=== PATIENT | male | born 1945 | race Caucasian/White ===

== ENCOUNTER → 2017-04-13 | Outpatient (CLI) | payer MEDICARE ==
[2017-04-13 16:25] LABS: Blood Urea Nitrogen 14 mg/dL (9-20); Non-African American GFR(MDRD) >60 (>60 ml/min/1.73 sqM)
--- NOTE | 2017-04-13 18:04 | CT ---
EXAMINATION TYPE: CT angio neck DATE OF EXAM: 04/13/2017 COMPARISON: NONE HISTORY: Carotid artery stenosis. Patient complains of syncopal episodes x [address] DLP: 448.00 mGycm Automated exposure control for dose reduction was used. CONTRAST: Performed with IV Contrast, patient injected with 65 mL of Omnipaque 350. FINDINGS: There are 3-D post processed images. Thoracic aorta is atheromatous. There is normal branching pattern of the great vessels on the aortic arch. The right vertebral artery is larger than the left. There is significant narrowing of the lumen of the left mid vertebral artery. Basilar artery fills mostly from the right side. There is bilateral patency of the common internal and external carotid arteries. There is atheroscler otic plaque at the origin of the internal carotid arteries bilaterally. There is significant plaque a t the right carotid artery bifurcation and probably 90% stenosis of the origin of the right internal carotid artery. There is approximately 60% stenosis at the origin of the left internal carotid artery . There is a segment of 40% stenosis of the left common carotid artery. There is no sign of dissectio n. IMPRESSION: THERE IS A LONG SEGMENT OF 40% STENOSIS OF THE LEFT MID COMMON CAROTID ARTERY. THERE IS APPROXIMATE 5 0-60% STENOSIS OF THE PROXIMAL LEFT INTERNAL CAROTID ARTERY. THERE IS EVIDENCE OF MORE THAN 90% STENOSIS OF THE ORIGIN RIGHT INTERNAL CAROTID ARTERY. THERE IS SUB TOTAL OCCLUSION. THERE IS A SMALL LEFT VERTEBRAL ARTERY AND IT IS NOT CLEAR IF THERE IS STENOSIS.
== END | disposition home or self-care (01) ==
LOC: RADCTMAIN 15:47
PROVIDERS: ATTEND Thoracic Surgery (Cardiothoracic Vascular Surgery)
DX: I65.23 Occlusion and stenosis of bilateral carotid arteries (principal)
CPT/HCPCS: 82565; 84520; 70498; 36415; Q9967

== ENCOUNTER → 2017-05-30 | Outpatient (CLI) | payer MEDICARE ==
[2017-05-30 10:47] LABS: CH 32.3; CHCM 35.9; HCT 45.4 % (39.0-53.0); HDW 2.95; HGB 15.9 gm/dL (13.0-17.5); MCH 31.5 pg (25.0-35.0); MCV 90.2 fL (80.0-100.0); Mean Platelet Volume 8.6; RBC 5.04 m/uL (4.30-5.90); RDW 14.1 % (11.5-15.5); WBC 5.9 k/uL (3.8-10.6)
== END | disposition home or self-care (01) ==
LOC: LABWHC1 10:13
PROVIDERS: ATTEND Thoracic Surgery (Cardiothoracic Vascular Surgery)
DX: I25.10 Atherosclerotic heart disease of native coronary artery without angina pectoris (principal); Z01.818 Encounter for other preprocedural examination
CPT/HCPCS: 85027; 93005

== ENCOUNTER 2017-06-02 08:24 | Inpatient (IN) | payer MEDICARE ==
[2017-05-29 16:16] VITALS: BMI 25.4
[~2017-06-02 08:24] MED LIST: FAMOTIDINE 20 MG/2 ML VIAL IV PRN; LIDOCAINE 1% 20 ML VIAL (10MG/ML) FOR IV START INTRADERMA PRN; ONDANSETRON 4 MG/2 ML VIAL IVP PRN; ceFAZolin 2 GM in SODIUM CHLORIDE 0.9% 100 ML IVPB ONE
[2017-06-02] MEDS ORDERED: PHENYLEPHRINE 40 MG in SODIUM CHLORIDE 0.9% 250 ML IV SCH (08:45)
[2017-06-02] MEDS: LACTATED RINGERS 1,000 ML IV SCH ×2 (09:47→10:58)
[2017-06-02] MEDS ORDERED: LABETALOL 5 MG/ML VIAL MDV ONE (11:01)
[2017-06-02] MEDS ORDERED: hydrALAZINE HCL 20 MG/ML 1 ML VIAL ONE (11:01)
[2017-06-02] MEDS ORDERED: SUCCINYLCHOLINE CHLORIDE 100 MG/5 ML SYR IV ONE (11:01)
[2017-06-02] MEDS ORDERED: GLYCOPYRROLATE 0.2 MG/ML 2 ML VIAL ONE (11:01)
[2017-06-02] MEDS ORDERED: HEPARIN SODIUM,PORCINE 5,000 UNIT/ML 1 ML VIAL ONE (11:01)
[2017-06-02] MEDS ORDERED: ROCURONIUM BROMIDE 10 MG/ML 10 ML VIAL IV ONE (11:01)
[2017-06-02] MEDS ORDERED: NEOSTIGMINE 1 MG/ML 10 ML VIAL ONE (11:01)
[2017-06-02] MEDS ORDERED: fentaNYL (PF) 50 MCG/ML 2 ML AMP ONE (11:01)
[2017-06-02] MEDS ORDERED: LIDOCAINE 1% INJ 10MG/ML (20 ML MDV) ONE (11:01)
[2017-06-02] MEDS ORDERED: MIDAZOLAM 2 MG/2 ML VIAL ONE (11:01)
[2017-06-02] MEDS ORDERED: PROPOFOL 10 MG/ML 20 ML VIAL IV ONE (11:01)
--- NOTE | 2017-06-02 11:02 | P.OP ---
Date of Procedure: 06/02/17 Preoperative Diagnosis: Internal carotid artery stenosis Postoperative Diagnosis: Right internal carotid artery stenosis Procedure(s) Performed: Implants: Anesthesia: ROBERTA Surgeon: Adán Maynard Estimated Blood Loss (ml): 50 Pathology: other (Atherosclerotic plaque) Condition: stable Disposition: ICU Indications for Procedure: Operative Findings: Description of Procedure: Patient was brought to the operating room under general anesthesia and prepared for right carotid endarterectomy cerebral monitoring was utilized by [employer] utilizing S SPEP and EEG monitoring throughout the procedure patient's right neck was prepped and draped in usual sterile Betadine fashion incision on the anterior border the sternocleidomastoid was carried down through skin and subcutaneous tissue electrocautery was utilized for hemostasis control of the carotid artery proximally and distally the internal/external and internal carotid arteries were all controlled heparin was administered 10,000 units IV we after 5 minutes of circulating heparin time controlled carotid artery and opened it and removed and extensive atherosclerotic plaque and the complete carotid endarterectomy was performed into the both internal and external carotid branches the intima was tacked down with 7-0 Prolene suture meticulous attention with loupe magnification removed all intimal debris flushed with heparin saline solution and patch the vessel closed with a Hemashield background patch utilizing 6-0 Prolene suture patient tolerated procedures well the neural monitoring throughout the procedure was satisfactory and we were able to close the vessel closed the neck without a drain utilizing a Vicryl sutures and all layers thank you for typing
[2017-06-02] MEDS ORDERED: SODIUM CHLORIDE 0.9% 500 ML with HEPARIN SODIUM,PORCINE 5,000 UNIT IV ONE ×2 (11:46)
[2017-06-02] MEDS ORDERED: TEMAZEPAM 15 MG CAP PO PRN (12:12)
[2017-06-02] MEDS ORDERED: LACTATED RINGERS 1,000 ML IV ONE ×3 (12:24→15:21)
[2017-06-02] MEDS ORDERED: THROMBIN (BOVINE) 5,000 UNIT VIAL TOPICAL ONE (12:49)
[2017-06-02] MEDS ORDERED: GELATIN SPONGE,ABSORB (LARGE) 1 EACH SPONGE TOPICAL ONE (12:50)
[2017-06-02] MEDS: NITROGLYCERIN-D5W PMX 50 MG in DEXTROSE/WATER 1 250ML.BAG IV SCH ×2 (13:40→15:19)
[2017-06-02] MEDS ORDERED: BENZOCAINE/MENTHOL LOZENG 1 EACH LOZENGE MUCOUS MEM PRN (14:49)
[2017-06-02] MEDS ORDERED: MORPHINE SULFATE 2 MG/ML SYRINGE IVP PRN (14:49)
[2017-06-02] MEDS ORDERED: MAG HYDROX/AL HYDROX/SIMETH 30 ML CUP PO PRN (14:49)
[2017-06-02] MEDS ORDERED: TRIMETHOBENZAMIDE 100 MG/ML 2 ML VIAL IM PRN (14:49)
[2017-06-02] MEDS ORDERED: HYDROcodone/APAP 5-325MG 1 EACH TAB PO PRN (14:49)
[2017-06-02] MEDS: HYDROmorphone 1 MG/ML 1 ML SYRINGE IVP PRN ×2 (15:00→15:10)
[2017-06-02] MEDS: ACETAMINOPHEN TAB 325 MG TAB PO PRN (16:44)
[2017-06-02] MEDS: ceFAZolin 2 GM in SODIUM CHLORIDE 0.9% 100 ML IVPB SCH ×2 (16:44→23:56)
[2017-06-02] MEDS: DEXTROSE 5%-0.45% NACL 1,000 ML IV SCH (16:45)
--- NOTE | 2017-06-02 18:26 | P.CNPUL ---
History of Present Illness Consult date: 06/02/17 Chief complaint: Carotid endarterectomy History of present illness: This is a 72-year-old gentleman with a known history of carotid artery disease, peripheral vascular disease, hypertension, hyperlipidemia, who was also found to have a significant right carotid artery stenosis. A CT angios of the neck showed 90% right internal carotid artery stenosis. The patient underwent a right carotid endarterectomy and currently is postop and is being monitored in the intensive care unit. He was brought in in a hemodynamically stable condition. There is been a discrepancy between the arterial line breathing and the cuff pressure reading. I think the arterial line waveform is suboptimal and probably to miss a representation of his underlying blood pressure control. He is currently on a 20 mics of nitroglycerin drip and his most recent also, the patient came in quite bradycardic and he was in sinus bradycardia, and low 40s and gradually his heart rate picked up and is currently he is in the mid 50s. No chest pain. No shortness of breath. No changes in his vision. No headaches. Surgical wound site over the right neck area is clean and intact. No bleeding. No nausea. No vomiting. No abdominal pain. Producing adequate amount of urine output. Currently on oxygen 2 L/m nasal cannula and his pulse is around 98%. Review of Systems Constitutional: Denies chills, Denies fever Eyes: denies blurred vision, denies bulging eye, denies decreased vision Ears: deny: decreased hearing, ear discharge Ears, nose, mouth and throat: Reports ant. neck pain (At the surgical site) Cardiovascular: Denies chest pain, Denies shortness of breath Respiratory: Denies cough Gastrointestinal: Denies abdominal pain, Denies diarrhea, Denies nausea, Denies vomiting Musculoskeletal: Denies myalgias Musculoskeletal: absent: ankle pain, ankle stiffness, ankle swelling Integumentary: Denies pruritus, Denies rash Neurological: Denies numbness, Denies weakness Past Medical History Past Medical History: Hearing Disorder / Deafness, Hyperlipidemia, Hypertension , Skin Disorder, Vascular Disorder Additional Past Medical History / Comment(s): Carotid artery disease bilaterally worse on the right with a HIDA percent stenosis at the origin of the right internal carotid artery, hypertension, hyperlipidemia, peripheral vascular disease, impaired hearing, History of Any Multi-Drug Resistant Organisms: None Reported Additional Past Surgical History / Comment(s): PTBA W/ 2 STENTS ON ONE SIDE, 1 STENT ON OTHER SIDE. Past Anesthesia/Blood Transfusion Reactions: No Reported Reaction Smoking Status: Former smoker - Past Family History Father Family Medical History: Cancer Medications and Allergies Home Medications Medication Instructions Recorded Confirmed Type Ascorbic Acid [Vitamin C] 1,000 mg PO DAILY 05/29/17 06/02/17 History Aspirin 325 mg PO DAILY 05/29/17 06/02/17 History Atorvastatin [Lipitor] 20 mg PO DAILY 05/29/17 06/02/17 History Atorvastatin [Lipitor] 40 mg PO DAILY 05/29/17 06/02/17 History Fish Oil/Dha/Epa [Fish Oil 1,200 1 cap PO DAILY 05/29/17 06/02/17 History mg Fish Oil] Lisinopril [Prinivil] 10 mg PO DAILY 05/29/17 06/02/17 History Multivitamins, Thera [Multivitamin 1 tab PO DAILY 05/29/17 06/02/17 History (formulary)] Temazepam [Restoril] 15 mg PO HS PRN 05/29/17 06/02/17 History Allergies Allergy/AdvReac Type Severity Reaction Status Date / Time No Known Allergies Allergy Verified 06/02/17 13:57 Physical Exam Vitals: Vital Signs Temp Pulse Resp BP BP BP BP 06/02/17 15:30 55 L 16 150/49 123/60 06/02/17 15:05 49 L 16 149/52 122/56 06/02/17 14:50 56 L 16 142/60 127/65 06/02/17 14:35 48 L 16 143/67 120/60 06/02/17 14:20 49 L 16 149/66 124/87 06/02/17 14:05 46 L 16 163/44 129/56 06/02/17 13:50 44 L 16 170/67 155/78 06/02/17 13:35 45 L 18 160/69 151/50 06/02/17 09:30 97.5 F L 51 L 18 151/63 133/63 Pulse Ox 06/02/17 15:30 98 06/02/17 15:05 98 06/02/17 14:50 100 06/02/17 14:35 99 06/02/17 14:20 99 06/02/17 14:05 99 06/02/17 13:50 98 06/02/17 13:35 100 06/02/17 09:30 99 Intake and Output 06/02/17 06/02/17 06/02/17 06:59 14:59 22:59 Intake Total 1601 414 Output Total 300 100 Balance 1301 314 Intake: IV 1601 414 Output: Urine 280 100 Estimated Blood Loss 20 Head exam was generally normal. There was no scleral icterus or corneal arcus. Mucous membranes were moist. Neck is supple and the surgical wound site over the right neck area is clean and intact. No swelling. No stridor.Lungs were clear to auscultation and percussion, and with normal diaphragmatic excursion. No wheezes or rales were noted. Cardiac exam revealed the PMI to be normally situated and sized. The rhythm was regular and no extrasystoles were noted during several minutes of auscultation. The first and second heart sounds were normal and physiologic splitting of the second heart sound was noted. There were no murmurs, rubs, clicks, or gallops.Abdominal exam revealed normal bowel sounds. The abdomen was soft, non-tender, and without masses, organomegaly, or appreciable enlargement of the abdominal aorta. Extremities are showing diminished pulses and there is no cyanosis or clubbing at this point. Assessment and Plan Plan: Assessment 1 right carotid endarterectomy, for severe 90% right carotid stenosis at origin of the internal carotid artery. 2 peripheral vascular disease 3 postoperative bradycardia, sinus, improving 4 postoperative hypertension, currently on a nitroglycerin drip for blood pressure control with a target mean arterial pressure of 75 5 hyperlipidemia 6 hypertension 7 impaired hearing Plan Monitor this patient's neuro status in ICU for another 24 hours. Surgical wound site is clean. The patient is alert. No neurologic deficits. The patient is a mild sinus bradycardia which seems to be improving. Continue nitroglycerin drip. Wean nitro drip to keep him map above 70. No other issues postop for now. 2 be monitored in ICU for the next 12-24 hours and possible discharge in a.m. if he continues to be stable. Resume Lipitor. Resume Zestril in a.m. IV Protonix. Heparin subcu for DVT prophylaxis.
[2017-06-02] MEDS: HEPARIN SODIUM,PORCINE 5,000 UNIT/ML 1 ML VIAL SQ SCH ×2 (20:07→23:56)
[2017-06-02] MEDS: HYDROcodone/APAP 5-325MG 1 EACH TAB PO PRN (20:15)
[2017-06-03] MEDS: HYDROcodone/APAP 5-325MG 1 EACH TAB PO PRN (01:15)
[2017-06-03 04:38] LABS: Basophils % (A) 0 %; CH 32.2; CHCM 36.4; Eosinophils # (A) 0.1 k/uL (0-0.7); Eosinophils % (A) 1 %; HCT 37.1 % (39.0-53.0); HDW 2.91; Luc # (Auto) 0.11; Luc % (Auto) 1; Lymphocytes # (A) 1.1 k/uL (1.0-4.8); Lymphocytes % (A) 13 %; MCH 31.1 pg (25.0-35.0); MCV 88.7 fL (80.0-100.0); Mean Platelet Volume 9.9; Monocytes # (A) 0.6 k/uL (0-1.0); Monocytes % (A) 7 %; Neutrophils # (A) 6.5 k/uL (1.3-7.7); Neutrophils % (A) 78 %; RBC 4.18 m/uL (4.30-5.90); RDW 13.8 % (11.5-15.5); WBC 8.4 k/uL (3.8-10.6); WBC (Perox) 8.36
[2017-06-03] MEDS: ACETAMINOPHEN TAB 325 MG TAB PO PRN (05:37)
[2017-06-03] MEDS ORDERED: PANTOPRAZOLE 40 MG TABLET PO SCH (07:30)
--- NOTE | 2017-06-03 08:01 | P.PN ---
Subjective Principal diagnosis: Right internal carotid artery stenosis. POD #1 right carotid endarterectomy. Patient currently sitting up in bed in no acute distress. Denies pain. Does state that he does not tolerate anticoagulants well, however he is only on aspirin which is his home medication. Objective - Vital Signs Vital signs: Vital Signs Temp 99.2 F 06/03/17 00:00 Pulse 52 L 06/03/17 06:00 Resp 12 06/03/17 06:00 BP 140/60 06/03/17 06:00 Pulse Ox 95 06/03/17 06:00 Intake & Output 06/02/17 06/03/17 06/03/17 18:59 06:59 18:59 Intake Total 2277 906 Output Total 625 1770 Balance 1652 -864 Weight 71.6 kg Intake: IV 2277 906 Dextrose 5%-0.45% NaCl 1, 150 900 000 ml @ 75 mls/hr IV . [id number] RAF Rx#:[id number] Nitroglycerin-D5w Pmx 50 12 6 mg In Dextrose/Water 1 250ml.bag @ Titrate IV . Q0M RAF Rx#:[id number] ceFAZolin 2 gm In Sodium 100 Chloride 0.9% 100 ml @ 100 mls/hr IVPB Q8HR RAF Rx#:[id number] Output: Urine 605 1770 Estimated Blood Loss 20 Other: Voiding Method Indwelling Catheter Indwelling Catheter ABP, PAP, CO, CI - Last Documented Arterial Blood Pressure 101/57 - Constitutional General appearance: Present: cooperative, no acute distress - Respiratory Details: Lungs sounds clear to auscultation. Respirations even, nonlabored. Currently on room air with oxygen saturation 95%. Able to achieve 2500 mL on his incentive spirometry. - Cardiovascular Details: S1, S2 present. Regular rate and rhythm, normal sinus rhythm on telemetry. Left radial arterial line present, waveform dampened. - Gastrointestinal Gastrointestinal Comment(s): Abdomen soft, nontender, nondistended. Active bowel sounds 4 quadrants. Tolerating diet. - Genitourinary Genitourinary Comment(s): Urine output 55-200 mL/h overnight. - Integumentary Integumentary Comment(s): Right neck incision well approximated, Steri-Strips present. Ice pack applied. - Neurologic Neurologic: Present: CNII-XII intact - Musculoskeletal Musculoskeletal: Present: strength equal bilaterally - Psychiatric Psychiatric: Present: A&O x's 3, appropriate affect, intact judgment & insight - Allied health notes Allied health notes reviewed: nursing - Labs CBC & Chem 7: 06/03/17 04:20 Labs: Abnormal Lab Results - Last 24 Hours (Table) 06/03/17 Range/Units 04:20 RBC 4.18 L (4.30-5.90) m/uL Hct 37.1 L (39.0-53.0) % Plt Count 137 L (150-450) k/uL Assessment and Plan (1) Stenosis of right internal carotid artery Status: Acute (2) S/P carotid endarterectomy Status: Acute (3) Hypertension Status: Acute (4) Hyperlipidemia Status: Acute (5) Tobacco dependence in remission Status: Acute Plan: 1. Discontinue arterial line, pearson. 2. Home medications including lisinopril. 3. Encourage incentive spirometer use. 4. Continue ice pack to right neck. Head of bed elevated 30 at all times. 5. Pain management with ordered medications. 6. Patient to be out of bed, ambulate in hallway. 7. Likely will discharge to home today. Time with Patient: Greater than 30
[2017-06-03] MEDS: DEXTROSE 5%-0.45% NACL 1,000 ML IV SCH (08:07)
[2017-06-03 08:24] LABS: ALT 30 U/L (21-72); AST 25 U/L (17-59); Alkaline Phosphatase 63 U/L (38-126); Anion Gap 6 mmol/L; Blood Urea Nitrogen 11 mg/dL (9-20); Calcium 8.3 mg/dL (8.4-10.2); Carbon Dioxide 24 mmol/L (22-30); Chloride 109 mmol/L (98-107); Glucose 148 mg/dL (74-99); Non-African American GFR(MDRD) >60 (>60 ml/min/1.73 sqM); Potassium 3.6 mmol/L (3.5-5.1); Sodium 139 mmol/L (137-145); Total Bilirubin 0.4 mg/dL (0.2-1.3); Total Protein 5.2 g/dL (6.3-8.2)
[2017-06-03 08:45] VITALS: TEMP 98
[2017-06-03] MEDS ORDERED: LISINOPRIL 10 MG TAB PO SCH (09:00)
[2017-06-03] MEDS ORDERED: ASCORBIC ACID 500 MG TAB PO SCH (09:00)
[2017-06-03] MEDS ORDERED: ATORVASTATIN 40 MG TAB PO SCH (09:00)
[2017-06-03] MEDS ORDERED: ATORVASTATIN 20 MG TAB PO SCH (09:00)
[2017-06-03] MEDS ORDERED: ASPIRIN 325 MG TAB PO SCH (09:00)
--- NOTE | 2017-06-03 09:37 | P.DS ---
Providers Date of admission: 06/02/17 08:24 Attending physician: Adán Maynard Consults: 06/02/17 14:49 Consult Physician Routine Consulting Provider: Gonzalo Guillen Consult Reason/Comments: ICU management Do you want consulting provider notified?: Yes Consult Physician Routine Consulting Provider: Roland Nelson Consult Reason/Comments: medical management Do you want consulting provider notified?: Yes Primary care physician: Stated None - Discharge Diagnosis(es) (1) Stenosis of right internal carotid artery Current Visit: Yes Status: Acute (2) S/P carotid endarterectomy Current Visit: Yes Status: Acute (3) Hypertension Current Visit: Yes Status: Acute (4) Hyperlipidemia Current Visit: Yes Status: Acute (5) Tobacco dependence in remission Current Visit: Yes Status: Acute Hospital Course: FINAL DIAGNOSIS: 1. Right internal carotid artery stenosis 2. Hypertension 3. Hyperlipidemia 4. Former tobacco dependence PRINCIPAL PROCEDURE: 1. Right carotid endarterectomy HISTORY OF PRESENT ILLNESS: This 72-year-old gentleman was being followed by Dr. Sanchez for carotid artery disease. He had a CT angiogram of the neck demonstrating 90% right internal carotid artery stenosis. His only symptom had been blurred vision when he turned his head. He denied any other neurological symptoms. He was recommended to have a carotid endarterectomy. The surgery was described in detail to the patient, all risks and benefits were explained, and the patient was agreeable to surgery, with plans for Dr. Harris to perform this surgery. HOSPITAL COURSE: The patient was brought in as an outpatient, taken to the preoperative area, prepared in the usual fashion, then taken to the operating room where Dr. Harris performed an elective right carotid endarterectomy. Upon completion of surgery the patient was extubated, taken to the recovery room , monitored hemodynamically until stable and subsequently admitted to the intensive care unit. He remained stable throughout the night, was weaned off his nitro drip, was tolerating oral medications and ambulation, and was ready to be discharged to home on postop day #1. He did have some rate and cardia during the night, however he had bradycardia preoperatively as well. He received written and verbal instructions regarding activity limitations, medications, signs and symptoms requiring physician notification, and follow-up appointments. COMPLICATIONS: The patient experienced no postoperative complications. DISCHARGE INSTRUCTIONS: 1. No driving for 2 weeks, or until physician gives their ok. 2. Keep head elevated 30 degrees at all times. 3. May use ice packs on incision for 20 minutes at a time. 4. Steri strips will come off on their own. Please don't pull them off. May cut ends as they start to curl. 5. No lifting, pushing, or pulling more than 10 pounds for 2 weeks. The physician will advise of any restriction changes. 6. Continue pain control per as needed orders. 7. Continue with incentive spirometry until otherwise directed by the physician. 8. Must shower daily using liquid antibacterial soap onl incision. 9. Routine incision care. No powders, lotions, ointments on incision. 10. Please call surgeon/SUPERVISOR STATEMENT CLERKS for temp greater than 101 F or purulent drainage from incisions. Patient Condition at Discharge: Stable Plan - Discharge Summary New Discharge Prescriptions: New Acetaminophen Tab [Tylenol] 650 mg PO Q4HR PRN tab PRN Reason: Pain Continue Multivitamins, Thera [Multivitamin (formulary)] 1 tab PO DAILY Ascorbic Acid [Vitamin C] 1,000 mg PO DAILY Lisinopril [Prinivil] 10 mg PO DAILY Atorvastatin [Lipitor] 40 mg PO DAILY Atorvastatin [Lipitor] 20 mg PO DAILY Aspirin 325 mg PO DAILY Fish Oil/Dha/Epa [Fish Oil 1,200 mg Fish Oil] 1 cap PO DAILY Temazepam [Restoril] 15 mg PO HS PRN PRN Reason: Insomnia Discharge Medication List Ascorbic Acid [Vitamin C] 1,000 mg PO DAILY 05/29/17 [History] Aspirin 325 mg PO DAILY 05/29/17 [History] Atorvastatin [Lipitor] 20 mg PO DAILY 05/29/17 [History] Atorvastatin [Lipitor] 40 mg PO DAILY 05/29/17 [History] Fish Oil/Dha/Epa [Fish Oil 1,200 mg Fish Oil] 1 cap PO DAILY 05/29/17 [History] Lisinopril [Prinivil] 10 mg PO DAILY 05/29/17 [History] Multivitamins, Thera [Multivitamin (formulary)] 1 tab PO DAILY 05/29/17 [History ] Temazepam [Restoril] 15 mg PO HS PRN 05/29/17 [History] Acetaminophen Tab [Tylenol] 650 mg PO Q4HR PRN tab 06/03/17 [Rx] Follow up Appointment(s)/Referral(s): Raheel Sanchez DO [Doctor of Osteopathic Medicine] - 06/11/17 9:30 am Activity/Diet/Wound Care/Special Instructions: DISCHARGE INSTRUCTIONS: 1. No driving for 2 weeks, or until physician gives their ok. 2. Keep head elevated 30 degrees at all times. 3. May use ice packs on incision for 20 minutes at a time. 4. Steri strips will come off on their own. Please don't pull them off. May cut ends as they start to curl. 5. No lifting, pushing, or pulling more than 10 pounds for 2 weeks. The physician will advise of any restriction changes. 6. Continue pain control per as needed orders. 7. Continue with incentive spirometry until otherwise directed by the physician. 8. Must shower daily using liquid antibacterial soap onl incision. 9. Routine incision care. No powders, lotions, ointments on incision. 10. Please call surgeon/SUPERVISOR STATEMENT CLERKS for temp greater than 101 F or purulent drainage from incisions. Discharge Disposition: HOME SELF-CARE
[2017-06-03 09:41] VITALS: BP 137/64; PULSE 61; RESP 19
[2017-06-03] MEDS ORDERED: MULTIVITAMINS, THERA 1 EACH TAB PO SCH (12:00)
--- NOTE | 2017-06-03 13:48 | CONS ---
DATE OF SERVICE: 06/02/2017 REASON FOR CONSULTATION: Advice regarding hypertension, hyperlipidemia requested by Vascular Surgery, Dr. Raya. HISTORY OF PRESENT ILLNESS: This 72-year-old gentleman with past medical history of hypertension, hyperlipidemia, history of carotid artery disease, is being followed by Dr. Call in the outpatient setting underwent right internal carotid endarterectomy by Dr. Raya. The patient is being closely monitored at this time in ICU. The patient complains of headache. There is no history of fever, rigors. No history of loss of consciousness of seizures. PAST MEDICAL HISTORY: History of hypertension, hyperlipidemia, history of DJD, history of carotid artery stenosis, history of PTBA. Medications prior to admission include home medications: 1. Restoril 50 mg q.h.s. 2. Multivitamin 1 p.o. daily. 3. Prinivil 10 mg daily. 4. Fish oil 1 p.o. daily. 5. Lipitor 40 mg daily. 7. Aspirin 325 mg daily. 8. Vitamin D 2000 mg daily. ALLERGIES: NONE. FAMILY HISTORY: History of cancer in the family. SOCIAL HISTORY: Previous history of smoking. No history of current smoking or alcohol intake. REVIEW OF SYSTEMS: ENT: As mentioned earlier. CARDIOVASCULAR: No angina. RESPIRATORY: As mentioned earlier. GI: No nausea. : No dysuria. NERVOUS SYSTEM: As mentioned. ALLERGY/IMMUNOLOGY: No asthma or hayfever. MUSCULOSKELETAL: As mentioned earlier. HEMATOLOGY/ONCOLOGY: No history of anemia. ENDOCRINE: No history of diabetes or hypothyroidism. CONSTITUTIONAL: As mentioned earlier. DERMATOLOGY: Negative. RHEUMATOLOGY: Negative. PSYCHIATRY: As mentioned earlier. PHYSICAL EXAMINATION: The patient is alert and oriented x3. Pulse is 63, blood pressure 117/43, respirations 11, temperature normal, pulse ox 94% on room air. NECK: Status post carotid endarterectomy. CARDIOVASCULAR: S1, S2. No S3 or S4. RESPIRATORY: Breath sounds diminished at the bases. No rhonchi, no crackles. ABDOMEN: Soft, nontender, no mass palpable. LEGS: No edema, no swelling. NERVOUS SYSTEM: Higher function as mentioned. Moves all four limbs. No focal motor sensory deficits. LYMPHATICS: No lymphadenopathy in the neck, axillae or groin. SKIN: No rash, ulcer or bleeding. LABS: Preop labs, CBC within normal limits. Chemistry shows LDL 124. EKG normal. ASSESSMENT: 1. Status post right carotid endarterectomy. 2. Hypertension. 3. Hyperlipidemia. 4. History of hard of hearing. 5. History of carotid artery stenosis and PTBA. 6. Remote history of nicotine dependence. RECOMMENDATIONS AND DISCUSSION: In this 72-year-old gentleman who presented with multiple complex medical issues. Will monitor the patient closely. Continue the current medications, continue symptomatic treatment. I would recommend resume the home medications. I would recommend continue with Lipitor and closely follow with family physician. Will follow the patient. DVT prophylaxis and incentive spirometry. Will follow the patient closely. Thank you Dr. Raya for letting us participate in the care of this patient. DIPAK
--- NOTE | 2017-06-03 14:06 | P.PN ---
Subjective Principal diagnosis: Right carotid stenosis This is a 72-year-old gentleman with a known history of carotid artery disease, peripheral vascular disease, hypertension, hyperlipidemia, who was also found to have a significant right carotid artery stenosis. A CT angios of the neck showed 90% right internal carotid artery stenosis. The patient underwent a right carotid endarterectomy and currently is postop and is being monitored in the intensive care unit. He was brought in in a hemodynamically stable condition. There is been a discrepancy between the arterial line breathing and the cuff pressure reading. I think the arterial line waveform is suboptimal and probably to miss a representation of his underlying blood pressure control. He is currently on a 20 mics of nitroglycerin drip and his most recent also, the patient came in quite bradycardic and he was in sinus bradycardia, and low 40s and gradually his heart rate picked up and is currently he is in the mid 50s. No chest pain. No shortness of breath. No changes in his vision. No headaches. Surgical wound site over the right neck area is clean and intact. No bleeding. No nausea. No vomiting. No abdominal pain. Producing adequate amount of urine output. Currently on oxygen 2 L/m nasal cannula and his pulse is around 98%. The patient was seen again today 06/03/2017 in follow-up in the intensive care unit. He is awake and alert in no acute distress. No neurological focal deficits. He's been hemodynamically stable. Heart rate in the upper 50s and lower 60s. He denies any visual disturbances. No weakness or tingling or numbness of the extremities. Smile is symmetrical. Surgical dressing to the right neck is dry and intact. He is maintaining good O2 saturations in the 90s on room air. Objective - Vital Signs Vital signs: Vital Signs Temp 98 F 06/03/17 08:00 Pulse 61 06/03/17 09:30 Resp 19 06/03/17 09:30 BP 137/64 06/03/17 09:30 Pulse Ox 98 06/03/17 09:30 Intake & Output 06/02/17 06/03/17 06/03/17 18:59 06:59 18:59 Intake Total 2277 906 75 Output Total 625 1770 100 Balance 1652 -864 -25 Weight 71.6 kg Intake: IV 2277 906 75 Dextrose 5%-0.45% NaCl 1, 150 900 75 000 ml @ 75 mls/hr IV . [id number] RAF Rx#:[id number] Nitroglycerin-D5w Pmx 50 12 6 mg In Dextrose/Water 1 250ml.bag @ Titrate IV . Q0M RAF Rx#:[id number] ceFAZolin 2 gm In Sodium 100 Chloride 0.9% 100 ml @ 100 mls/hr IVPB Q8HR RAF Rx#:[id number] Output: Urine 605 1770 100 Estimated Blood Loss 20 Other: Voiding Method Indwelling Catheter Indwelling Catheter Toilet # Voids 1 ABP, PAP, CO, CI - Last Documented Arterial Blood Pressure 101/57 - Exam Head exam was generally normal. There was no scleral icterus or corneal arcus. Mucous membranes were moist. Neck is supple and the surgical wound site over the right neck area is clean and intact. No swelling. No stridor.Lungs were clear to auscultation and percussion, and with normal diaphragmatic excursion. No wheezes or rales were noted. Cardiac exam revealed the PMI to be normally situated and sized. The rhythm was regular and no extrasystoles were noted during several minutes of auscultation. The first and second heart sounds were normal and physiologic splitting of the second heart sound was noted. There were no murmurs, rubs, clicks, or gallops.Abdominal exam revealed normal bowel sounds. The abdomen was soft, non-tender, and without masses, organomegaly, or appreciable enlargement of the abdominal aorta. Extremities are showing diminished pulses and there is no cyanosis or clubbing at this point. - Labs CBC & Chem 7: 06/03/17 04:20 06/03/17 04:20 Labs: Abnormal Lab Results - Last 24 Hours (Table) 06/03/17 06/03/17 Range/Units 04:20 04:20 RBC 4.18 L (4.30-5.90) m/uL Hct 37.1 L (39.0-53.0) % Plt Count 137 L (150-450) k/uL Chloride 109 H (98-107) mmol/L Glucose 148 H (74-99) mg/dL Calcium 8.3 L (8.4-10.2) mg/dL Total Protein 5.2 L (6.3-8.2) g/dL Albumin 2.9 L (3.5-5.0) g/dL Assessment and Plan Plan: Assessment 1 right carotid endarterectomy, for severe 90% right carotid stenosis at origin of the internal carotid artery. 2 peripheral vascular disease 3 hypertension 4 hyperlipidemia 5 hypertension 6 impaired hearing Plan The patient was seen and evaluated by Dr. Guillen. He is stable from the pulmonary and critical care standpoint. The plan is for probable discharge today.
== END 2017-06-03 13:10 | disposition home or self-care (01) | DRG 39 ==
LOC: 2ORMAIN 08:24 → 6ICU 13:42
PROVIDERS: ADMIT Thoracic Surgery (Cardiothoracic Vascular Surgery); ATTEND Thoracic Surgery (Cardiothoracic Vascular Surgery)
PROC: 03UK0JZ Supplement Right Internal Carotid Artery with Synthetic Substitute, Open Approach (ICD-10-PCS; 2017-06-02)
PROC: 4A10X4G Monitoring of Central Nervous Electrical Activity, Intraoperative, External Approach (ICD-10-PCS; 2017-06-02)
PROC: 03CK0ZZ Extirpation of Matter from Right Internal Carotid Artery, Open Approach (ICD-10-PCS; principal; 2017-06-02 10:30)
DX: I65.21 Occlusion and stenosis of right carotid artery (principal); R00.1 Bradycardia, unspecified; I10 Essential (primary) hypertension; I97.3 Postprocedural hypertension; E78.5 Hyperlipidemia, unspecified; I73.9 Peripheral vascular disease, unspecified; H53.8 Other visual disturbances; M19.90 Unspecified osteoarthritis, unspecified site; H91.90 Unspecified hearing loss, unspecified ear; F17.201 Nicotine dependence, unspecified, in remission; Z79.899 Other long term (current) drug therapy; Z79.82 Long term (current) use of aspirin; Z80.9 Family history of malignant neoplasm, unspecified; Z87.2 Personal history of diseases of the skin and subcutaneous tissue; Z86.79 Personal history of other diseases of the circulatory system; Z98.890 Other specified postprocedural states
CPT/HCPCS: 80053; 85025; 86850; 86900; 86901; 88304; 88311

== ENCOUNTER → 2017-06-23 | Outpatient (CLI) | payer MEDICARE ==
--- NOTE | 2017-06-23 09:06 | FL ---
EXAMINATION: Cervical and Thoracic Esophagram DATE OF EXAM: 06/23/2017 CLINICAL INDICATION: 72 year-old male with dysphagia for one month. Patient reports sensation of food sitting in the lower third chest level. Trouble swallowing. COMPARISON: None Total Fluoroscopy Time: 1 minute. Total images: 44. FINDINGS: The swallowing mechanism is normal and hypopharyngeal anatomy is preserved. There is some anterior en dplate spondylosis particularly at C5-C6 which causes mild posterior pharyngeal impression. The cervical and thoracic portions have a normal course and caliber. However, there are moderate tert iary peristaltic contractions. The mucosa is normal and no persistent filling defect is encountered. There is a tiny sliding hiatal hernia and severe gastroesophageal reflux is identified which occur sp ontaneously when the patient is brought supine with contrast refluxing to the level of the thoracic i nlet. Some surgical clips are seen high at the right side of the neck. IMPRESSION: 1. Moderate anterior endplate spondylosis at C5-C6 causing mild posterior pharyngeal impression. 2. Tiny sliding hiatal hernia with severe spontaneous gastroesophageal reflux reaching up to the thor acic inlet. 3. Moderate tertiary peristaltic contractions suggests early esophageal dysmotility. 4. No suspicious mass identified.
== END | disposition home or self-care (01) ==
LOC: RADFLMAIN 08:01
PROVIDERS: ATTEND Family Medicine
DX: M47.812 Spondylosis without myelopathy or radiculopathy, cervical region (principal); K44.9 Diaphragmatic hernia without obstruction or gangrene; K21.9 Gastro-esophageal reflux disease without esophagitis; R53.83 Other fatigue
CPT/HCPCS: 74220

== ENCOUNTER 2017-08-13 09:11 | Day surgery (SDC) | payer MEDICARE ==
[2017-08-11 15:05] VITALS: BMI 25.2
[~2017-08-13 09:11] MED LIST changes: -FAMOTIDINE 20 MG/2 ML VIAL IV PRN; +LACTATED RINGERS 1,000 ML IV SCH; -LIDOCAINE 1% 20 ML VIAL (10MG/ML) FOR IV START INTRADERMA PRN; -ONDANSETRON 4 MG/2 ML VIAL IVP PRN; -ceFAZolin 2 GM in SODIUM CHLORIDE 0.9% 100 ML IVPB ONE
[2017-08-13 09:57] VITALS: RESP 18; TEMP 98
[2017-08-13] MEDS ORDERED: LIDOCAINE 1% 20 ML VIAL (10MG/ML) FOR IV START INTRADERMA ONE (10:14)
[2017-08-13] MEDS ORDERED: PROPOFOL 10 MG/ML 20 ML VIAL IV ONE (10:35)
[2017-08-13] MEDS ORDERED: LIDOCAINE 1% INJ 10MG/ML (20 ML MDV) ONE (10:35)
[2017-08-13 11:01] VITALS: PULSE 69
--- NOTE | 2017-08-13 11:04 | P.PCN ---
Date of Procedure: 08/13/17 Procedure(s) Performed: Procedure: Esophagogastroduodenoscopy and biopsy. Preoperative diagnosis: Dysphagia. Postoperative diagnosis: 1. Sliding hiatal hernia with no obvious esophagitis, Montemayor's esophagus or obstructing strictures. 2. Mild antral gastritis. 3. Multiple biopsies were obtained from the duodenum, antrum and esophagus. Preparation and sedation: Was provided by anesthesia. Brief clinical history: The patient is a 72-year-old male who is referred for this evaluation because of recent onset of dysphagia over the last several months. No alarm symptoms such as weight loss or bleeding or anemia. This evaluation is to assess for esophagitis, complicated reflux disease or other pathology. Procedure: With the patient on his left lateral decubitus position and after informed consent and adequate sedation, I passed the Olympus-GIF 160 video upper endoscope through the cricopharyngeus down the esophagus. GE junction was around 38 cm from the incisors and there was a small sliding hiatal hernia. The distal esophagus did not show any erosions or ulcers. There was no Montemayor's esophagus. At times I would notice a short, benign nonobstructing stricture. I tried to obtained biopsies from the esophagus at the level of the stricture to break its continuity in the event that it is contributing to his symptoms. The endoscope was then passed into the stomach which was insufflated with air and inspected in detail including the retroflex view in the cardia. There was some minimal mottling and erythema in the antrum but no ulcers or erosions. Pyloric channel, duodenal bulb, post bulbar area and descending duodenum appeared within normal limits. I obtained multiple biopsies from the duodenum as well as the antrum in addition to the esophageal biopsies, mentioned earlier, before the endoscope was withdrawn. The patient tolerated the procedure well. Plan: The patient was reassured. He will follow up with you as planned and I suggested I see him in follow-up to discuss his swallowing issues and decide if we need to proceed with additional studies such as motility studies based on his course and biopsy results. I will keep you updated on his progress.
[2017-08-13 11:14] VITALS: BP 123/73
== END 2017-08-13 11:55 | disposition home or self-care (01) ==
LOC: ORWHC2ENDO 09:11
DX: K29.70 Gastritis, unspecified, without bleeding (principal); K44.9 Diaphragmatic hernia without obstruction or gangrene; R13.10 Dysphagia, unspecified; I25.10 Atherosclerotic heart disease of native coronary artery without angina pectoris; I10 Essential (primary) hypertension; E78.5 Hyperlipidemia, unspecified; I73.9 Peripheral vascular disease, unspecified; Z95.5 Presence of coronary angioplasty implant and graft; Z79.82 Long term (current) use of aspirin; Z79.899 Other long term (current) drug therapy
CPT/HCPCS: 88305; 88342; 43239; J2001; J2704

== ENCOUNTER 2017-11-17 13:11 | Day surgery (SDC) | payer MEDICARE ==
[2017-11-11 23:31] VITALS: BMI 25.0
[~2017-11-17 13:11] MED LIST changes: +LIDOCAINE 1% 20 ML VIAL (10MG/ML) FOR IV START INTRADERMA PRN
[2017-11-17 13:53] VITALS: RESP 18; TEMP 98.2
[2017-11-17] MEDS ORDERED: LACTATED RINGERS 1,000 ML IV ONE (13:53)
[2017-11-17] MEDS ORDERED: PROPOFOL 10 MG/ML 20 ML VIAL IV ONE (14:28)
[2017-11-17] MEDS ORDERED: LIDOCAINE 1% INJ 10MG/ML (20 ML MDV) ONE (14:28)
[2017-11-17 15:32] VITALS: BP 115/62; PULSE 70
--- NOTE | 2017-11-17 15:47 | P.PCN ---
Date of Procedure: 11/17/17 Procedure(s) Performed: Procedure: Total colonoscopy. Preoperative diagnosis: Screening for neoplasia, patient has history of polyps. Postoperative diagnosis: Diffuse diverticulosis with no evidence of acute diverticulitis, strictures, polyps or cancer. Preparation: HalfLytely prep. Sedation: Was provided by anesthesia. Brief clinical history: The patient is a 72-year-old male who is scheduled for this evaluation for screening for neoplasia because of history of colon polyps. His last exam was around 5 years ago. The patient has no abdominal complaints , bleeding or anemia. Procedure: With the patient on his left lateral decubitus position and after informed consent and adequate sedation, the perianal area was inspected and it did not show any fissures or fistulas. There were no masses felt on digital rectal examination. The Olympus CFQ 160L video colonoscope was then inserted in the rectum in the usual fashion and advanced to the cecum. There were multiple diverticular orifices seen scattered along the length of the bowel mostly on the left side with several on the right side with no evidence of acute diverticulitis or strictures. The mucosa appeared healthy. No polyps or tumors were seen. I retroflexed the endoscope in the rectum before the endoscope was withdrawn. The patient tolerated the procedure well. Plan: The patient was reassured. Discussed dietary measures. Consideration can be given for repeat exam in 5 years depending on his overall health at that time. He will be discussing that with you.
== END 2017-11-17 15:53 | disposition home or self-care (01) ==
LOC: ORWHC2ENDO 13:11
DX: Z12.11 Encounter for screening for malignant neoplasm of colon (principal); K57.30 Diverticulosis of large intestine without perforation or abscess without bleeding; Z86.010 Personal history of colon polyps; I25.10 Atherosclerotic heart disease of native coronary artery without angina pectoris; I10 Essential (primary) hypertension; E78.5 Hyperlipidemia, unspecified; I73.9 Peripheral vascular disease, unspecified; L98.9 Disorder of the skin and subcutaneous tissue, unspecified; G43.909 Migraine, unspecified, not intractable, without status migrainosus; Z79.82 Long term (current) use of aspirin; Z79.899 Other long term (current) drug therapy; Z88.8 Allergy status to other drugs, medicaments and biological substances; Z87.891 Personal history of nicotine dependence
CPT/HCPCS: J2001; J2704; G0105; 45378

== ENCOUNTER → 2021-10-08 | Outpatient (CLI) | payer MEDICARE ==
--- NOTE | 2021-10-08 16:06 | CTL ---
EXAMINATION TYPE: CT Low Dose Lung DATE OF EXAM ORDERED: 10/08/2021 HISTORY: . Lung cancer screening CT DLP: 76.[address] CTDI: 2.2 mGy Automated exposure control for dose reduction was used. SCREENING VISIT: COMPARISON: None TECHNIQUE: Low dose computed tomography scan was performed through the chest at 1 mm thick sections a nd reconstructed images in multiple planes at 1 mm and [address] DIAGNOSTIC QUALITY: Satisfactory FINDINGS: Biapical pleural thickening. There are emphysematous changes seen. Sub-5 mm subpleural nodules bilate ral upper lobes. 4 mm left lower lobe pulmonary nodule. 2 mm nodule right middle lobe axial image 162 . Left upper lobe nodule measuring 2 mm image 109 No consolidative pneumonia, pleural effusion or pneumothorax. Central and basilar mild bronchiectasis . No pleural thickening or pleural calcifications. Structures of the upper abdomen demonstrate vascular calcifications. Mild prominence of the right col lecting system is only partially included on the exam. Hypertrophic and degenerative changes of the s pine. Arthropathy of the shoulder. Atherosclerotic change of the aorta which appears to be of normal caliber. Heart size mildly prominen t there is calcification of the aortic root and valve. Coronary artery calcification seen. Maximal di mension of the thoracic aorta measures 3.6 cm. IMPRESSION: 1. COPD with multiple: Sub-5 mm pulmonary nodules which have a benign appearance. 2. Coronary artery atherosclerotic changes. Next line 3. Basilar and central mild bronchiectasis. CT LUNG RAD AND CT CHEST RECOMMENDATION: Lung-Rad 2 Benign Appearance or Behavior: Continue annual sc reening with LDCT in 12 months.
== END | disposition home or self-care (01) ==
LOC: RADCTMAIN 15:22
PROVIDERS: ATTEND Family Medicine
DX: Z12.2 Encounter for screening for malignant neoplasm of respiratory organs (principal); J43.9 Emphysema, unspecified; J47.9 Bronchiectasis, uncomplicated; I25.10 Atherosclerotic heart disease of native coronary artery without angina pectoris; R91.8 Other nonspecific abnormal finding of lung field
CPT/HCPCS: 71271

== ENCOUNTER 2023-02-11 12:07 | Day surgery (SDC) | payer MEDICARE ==
[2023-02-11] MEDS ORDERED: LIDOCAINE 1% (10MG/ML) FOR IV START INTRADERMA PRN (12:26)
[2023-02-11] MEDS ORDERED: LACTATED RINGERS 1,000 ML IV SCH (12:26)
[2023-02-11 12:35] VITALS: TEMP 97.8
[2023-02-11] MEDS ORDERED: PROPOFOL 10 MG/ML 20 ML VIAL IV ONE (13:04)
--- NOTE | 2023-02-11 13:16 | P.PCN ---
Date of Procedure: 02/11/23 Procedure(s) Performed: BRIEF HISTORY: Patient is a 78-year-old pleasant white male scheduled for an elective colonoscopy as a part of evaluation of prior history of colon polyps. PROC EDURE PERFORMED: Colonoscopy. PREOPERATIVE DIAGNOSIS: History of colon polyps IV sedation per Anesthesia. PROCEDURE: After informed consent was obtained, the patient, was brought into the endoscopy unit. IV sedation was administered by Anesthesia under continuous monitoring. Digital rectal examination was normal. Initially the Olympus CF-160 flexible video colonoscope was then inserted in the rectum, gradually advanced into the cecum without any difficulty. Careful examination was performed as the scope was gradually being withdrawn. Ileocecal valve and the appendiceal orifice were visualized and appeared normal. Prep was excellent. Mucosa of the cecum, ascending colon, transverse colon, descending colon, sigmoid colon, and rectum appeared normal. in the proximal rectum there was a 3 mm polyp that was removed by cold biopsy. Scattered diffuse diverticulosis seen. Retroflexion was performed in the rectum and no lesions were seen. The patient tolerated the procedure well. IMPRESSION: Scattered diffuse diverticula throughout the entire colon 3 millimeters rectal polyp status post biopsy RECOMMENDATIONS: Findings of this examination were discussed with the patient .He was advised to follow with the biopsy result. Recommend a high-fiber diet and fiber supplements as needed. No need for repeat colonoscopy because of his age unless he has any symptoms.
[2023-02-11 13:40] VITALS: BP 128/72; PULSE 64; RESP 15
== END 2023-02-11 14:05 | disposition home or self-care (01) ==
LOC: ORWHC2ENDO 12:07
PROVIDERS: ATTEND Internal Medicine Gastroenterology
DX: Z12.11 Encounter for screening for malignant neoplasm of colon (principal); K62.1 Rectal polyp; K57.30 Diverticulosis of large intestine without perforation or abscess without bleeding; I25.10 Atherosclerotic heart disease of native coronary artery without angina pectoris; I10 Essential (primary) hypertension; E78.5 Hyperlipidemia, unspecified; I73.9 Peripheral vascular disease, unspecified; G43.909 Migraine, unspecified, not intractable, without status migrainosus; N42.9 Disorder of prostate, unspecified; Z79.82 Long term (current) use of aspirin; Z79.899 Other long term (current) drug therapy; Z98.890 Other specified postprocedural states
CPT/HCPCS: 45380; 88305; J2704

== ENCOUNTER 2024-11-17 17:07 | Observation (INO) | payer MEDICARE ==
--- NOTE | 2024-11-17 19:10 | CT ---
EXAMINATION TYPE: CT abdomen pelvis wo con DATE OF EXAM: 11/17/2024 6:45 PM COMPARISON: None CLINICAL INDICATION: Male, 79 years old with history of abdominal pain, RRLQ; RLQ abdominal pain. TECHNIQUE: Axial CT abdomen pelvis wo con;Sagittal and coronal reformats were created on a separate workstation. Contrast used: mL of , (none if empty) Oral contrast used: without Oral Contrast (none if empty) CT DLP: 472.3 mGycm, Automated exposure control for dose reduction was used. FINDINGS: LOWER CHEST: Calcifications of the mitral valve, aortic valve which are moderate to severe and murphy ry arteries. ABDOMEN LIVER: Unremarkable GALLBLADDER AND BILE DUCTS: Unremarkable. PANCREAS: Unremarkable. SPLEEN: Unremarkable. ADRENAL GLANDS: Unremarkable. KIDNEYS AND URETERS: No evidence of hydronephrosis or renal calculus. The ureters are unremarkable. Simple appearing probable renal cysts. Cortical thinning of the left inferior anterior renal cortex s uggesting prior injury. PELVIS BLADDER: No evidence for wall thickening or mass given limitations of exam. REPRODUCTIVE: Unremarkable. ABDOMEN & PELVIS STOMACH AND BOWEL: No evidence of bowel obstruction. The appendix is normal. Circumferential wall thi ckening of the small bowel in the abdomen. Scattered colonic diverticula. Small bowel with wall thick ening does enter the right inguinal canal series 202 image 36. Redundant colon throughout the abdomen . PERITONEUM/RETROPERITONEUM: No evidence of pneumoperitoneum or free fluid. VASCULATURE: Infrarenal abdominal aortic aneurysm in at least 2 spots when viewing from sagittal view saccular appearing more superiorly measuring 41 and more fusiform just before the bifurcation measur ing up to 38 mm. Axial imaging measuring 46 x 42 mm evidence of 2 densities with higher density centr ally suggesting mural thrombus. Possible stent grafts in the bilateral common iliac arteries. MUSCULOSKELETAL: No acute osseous abnormalities LYMPH NODES: No gross evidence for lymphadenopathy. SOFT TISSUE/ABDOMINAL WALL: Fat-containing left inguinal hernia that and bowel containing right ingui nal hernia. No evidence for obstruction. Fat-containing umbilical hernia. IMPRESSION: 1. Circumferential wall thickening of loops of small bowel in the mid abdomen compatible with enteri tis. A Loop of small bowel with thickened quick does enter partially into the right inguinal canal. N o evidence for bowel obstruction. 2. Infrarenal abdominal aortic aneurysms, the largest measuring 46 x 42 mm on axial slices, vascular surgical consultation recommended. 3. Moderate to severe valve calcifications. 4. Fat-containing umbilical hernia. [facility], , 11/17/2024 7:07 PM
[2024-11-17 19:20] LABS: Basophils # (A) 0.1 k/uL (0-0.2); Basophils % (A) 1 %; Eosinophils # (A) 0.3 k/uL (0-0.7); Eosinophils % (A) 3 %; HCT 54.7 % (39.0-53.0); HGB 18.5 gm/dL (13.0-17.5); Lymphocytes # (A) 1.5 k/uL (1.0-4.8); Lymphocytes % (A) 17 %; MCH 31.1 pg (25.0-35.0); MCHC 33.9 g/dL (31.0-37.0); Mean Platelet Volume 8.4; Monocytes # (A) 0.5 k/uL (0-1.0); Monocytes % (A) 6 %; Neutrophils # (A) 6.2 k/uL (1.3-7.7); Neutrophils % (A) 71 %; Platelet Count 180 k/uL (150-450); RBC 5.95 m/uL (4.30-5.90); RDW 12.9 % (11.5-15.5); WBC 8.7 k/uL (3.8-10.6)
[2024-11-17 19:21] LABS: Appearance,Urine Clear (Clear); Bilirubin,Urine Negative (Negative); Blood,Urine Negative (Negative); Color,Urine Yellow; Glucose,Urine (UA) Negative (Negative); Ketones,Urine Trace (Negative); Leukocyte Esterase,Urine Negative (Negative); Nitrite,Urine Negative (Negative); PH, Urine 5.5 (5.0-8.0); Protein,Urine Trace (Negative); Specific Gravity,Urine 1.028 (1.001-1.035); Urobilinogen,Urine <2.0 mg/dL (<2.0)
[2024-11-17 19:30] LABS: ALT 23 U/L (4-49); African American GFR (CKD) 65 (>60 ml/min/1.73 sqM); Amylase 84 U/L (30-110); Anion Gap 11 mmol/L; Blood Urea Nitrogen 22 mg/dL (9-20); Calcium 10.4 mg/dL (8.4-10.2); Carbon Dioxide 26 mmol/L (22-30); Chloride 101 mmol/L (98-107); Glucose 86 mg/dL (74-99); Lipase 100 U/L (23-300); Non-African American GFR(CKD) 56 (>60 ml/min/1.73 sqM); Sodium 138 mmol/L (137-145)
[2024-11-17 19:42] LABS: AST 42 U/L (17-59); Albumin 4.7 g/dL (3.5-5.0); Alkaline Phosphatase 81 U/L (38-126); Potassium 5.4 mmol/L (3.5-5.1); Total Bilirubin 1.8 mg/dL (0.2-1.3); Total Protein 8.2 g/dL (6.3-8.2)
[2024-11-17] MEDS ORDERED: NALOXONE 0.4 MG/ML 1 ML VIAL IV PRN (22:26)
[2024-11-17] MEDS ORDERED: MORPHINE SULFATE 4 MG/ML SYRINGE IV PRN (22:26)
[2024-11-17] MEDS ORDERED: ONDANSETRON 4 MG/2 ML VIAL IVP PRN (22:26)
[2024-11-17] MEDS: SODIUM CHLORIDE 0.9% 1,000 ML IV SCH (22:54)
--- NOTE | 2024-11-18 00:02 | ED ---
Abdominal Pain HPI - General Chief Complaint: Abdominal Pain Stated Complaint: Right abdominal pain Time Seen by Provider: 11/17/24 17:38 Source: patient Mode of arrival: ambulatory Limitations: no limitations - History of Present Illness Initial Comments: This patient is a 79-year-old man who presents to have evaluation of right sided flank/right lower quadrant pain. Patient states that he had diarrhea all night Thursday night and then the pain had started early Thursday. He describes it as aching sometimes stabbing. No worsening or relieving factors. No fever or chills. No vomiting. The patient has not noted change in urination. The pain does not go into the scrotum or testicles. He has not noted any swelling. MD Complaint: abdominal pain Onset/Timin -: days(s) Location: RLQ, R flank Radiation: none Migration to: no migration Severity: moderate Quality: cramping, aching Consistency: constant Improves With: nothing Worsens With: nothing Associated Symptoms: nausea, diarrhea - Related Data Home Medications Medication Instructions Recorded Confirmed Ascorbic Acid [Vitamin C] 1,000 mg PO DAILY 05/29/17 02/06/23 Aspirin 325 mg PO DAILY 05/29/17 02/06/23 Atorvastatin [Lipitor] 20 mg PO DAILY 05/29/17 02/06/23 Atorvastatin [Lipitor] 40 mg PO DAILY 05/29/17 02/06/23 Multivitamins, Thera [Multivitamin 1 tab PO DAILY 05/29/17 02/06/23 (formulary)] Temazepam [Restoril] 15 mg PO HS PRN 05/29/17 02/06/23 lisinopriL [Prinivil] 10 mg PO DAILY 05/29/17 02/06/23 Allergies Allergy/AdvReac Type Severity Reaction Status Date / Time heparin Allergy headache Verified 11/17/24 17:31 Review of Systems ROS Statement: Those systems with pertinent positive or pertinent negative responses have been documented in the HPI. ROS Other: All systems not noted in ROS Statement are negative. Constitutional: Denies: fever, chills Respiratory: Denies: cough, dyspnea Cardiovascular: Denies: chest pain, palpitations Gastrointestinal: Reports: abdominal pain, nausea, diarrhea. Denies: vomiting, constipation, melena, hematochezia Genitourinary: Denies: dysuria, hematuria, testicular pain, testicular mass Musculoskeletal: Denies: back pain Skin: Denies: rash Neurological: Denies: headache, weakness, numbness Past Medical History Past Medical History: Coronary Artery Disease (CAD), Hyperlipidemia, Hypertension, Prostate Disorder, Skin Disorder, Vascular Disorder Additional Past Medical History / Comment(s): migraines, PVD, back is itchy, History of Any Multi-Drug Resistant Organisms: None Reported Past Surgical History: Orthopedic Surgery Additional Past Surgical History / Comment(s): PTBA W/ 2 STENTS ON ONE SIDE, 1 STENT ON OTHER SIDE. rt shoulder rotator cuff. RT CAROTID ENDARTERECTOMY Past Anesthesia/Blood Transfusion Reactions: No Reported Reaction Date of Last Stent Placement:: UNK Past Psychological History: No Psychological Hx Reported Smoking Status: Former smoker - Past Family History Father Family Medical History: Cancer Daughter(s) Family Medical History: Cancer General Exam Limitations: no limitations General appearance: alert, in no apparent distress Head exam: Present: atraumatic, normocephalic Eye exam: Present: normal appearance. Absent: scleral icterus, conjunctival injection ENT exam: Present: normal oropharynx Neck exam: Present: normal inspection Respiratory exam: Present: normal lung sounds bilaterally. Absent: respiratory distress, wheezes, rales, rhonchi, stridor, accessory muscle use Cardiovascular Exam: Present: regular rate, normal rhythm, normal heart sounds. Absent: systolic murmur, diastolic murmur, rubs, gallop GI/Abdominal exam: Present: soft, tenderness. Absent: distended, guarding, rebound, rigid, mass, pulsatile mass, hernia Extremities exam: Present: normal inspection, normal capillary refill. Absent: pedal edema, calf tenderness Back exam: Present: normal inspection. Absent: CVA tenderness (R), CVA tenderness (L) Neurological exam: Present: alert Skin exam: Present: warm, dry, intact, normal color. Absent: rash Course Vital Signs 11/17/24 11/17/24 17:31 22:16 Temperature 97.3 F L 97.6 F Pulse Rate 79 84 Respiratory 18 18 Rate Blood Pressure 129/78 129/73 O2 Sat by Pulse 97 97 Oximetry Medical Decision Making - Medical Decision Making Patient is 79-year-old man here for abdominal pain. The patient does have moderate tenderness on exam though no rebound or guarding. The patient had CT scan of the abdomen that I interpreted to show no free air or obstruction. There is distended small bowel loop. The patient did continue to have pain and given the distended bowel loop will admit for ileus possible early small bowel obstruction and also have surgical consultation related to the loop of bowel in the inguinal canal. - Lab Data Result diagrams: 11/17/24 19:00 11/17/24 19:00 Lab Results 11/17/24 11/17/24 11/17/24 Range/Units 19:00 19:00 19:00 WBC 8.7 (3.8-10.6) k/uL RBC 5.95 H (4.30-5.90) m/uL Hgb 18.5 H (13.0-17.5) gm/dL Hct 54.7 H (39.0-53.0) % MCV 92.0 (80.0-100.0) fL MCH 31.1 (25.0-35.0) pg MCHC 33.9 (31.0-37.0) g/dL RDW 12.9 (11.5-15.5) % Plt Count 180 (150-450) k/uL MPV 8.4 Neutrophils % 71 % Lymphocytes % 17 % Monocytes % 6 % Eosinophils % 3 % Basophils % 1 % Neutrophils # 6.2 (1.3-7.7) k/uL Lymphocytes # 1.5 (1.0-4.8) k/uL Monocytes # 0.5 (0-1.0) k/uL Eosinophils # 0.3 (0-0.7) k/uL Basophils # 0.1 (0-0.2) k/uL Sodium 138 (137-145) mmol/L Potassium 5.4 H (3.5-5.1) mmol/L Chloride 101 (98-107) mmol/L Carbon Dioxide 26 (22-30) mmol/L Anion Gap 11 mmol/L BUN 22 H (9-20) mg/dL Creatinine 1.23 (0.66-1.25) mg/dL Est GFR (CKD-EPI)AfAm 65 (>60 ml/min/1.73 sqM) Est GFR (CKD-EPI)NonAf 56 (>60 ml/min/1.73 sqM) Glucose 86 (74-99) mg/dL Plasma Lactic Acid Martin 1.6 (0.7-2.0) mmol/L Calcium 10.4 H (8.4-10.2) mg/dL Total Bilirubin 1.8 H (0.2-1.3) mg/dL AST 42 (17-59) U/L ALT 23 (4-49) U/L Alkaline Phosphatase 81 (38-126) U/L Total Protein 8.2 (6.3-8.2) g/dL Albumin 4.7 (3.5-5.0) g/dL Amylase 84 (30-110) U/L Lipase 100 (23-300) U/L Urine Color Urine Appearance (Clear) Urine pH (5.0-8.0) Ur Specific [place] (1.001-1.035) Urine Protein (Negative) Urine Glucose (UA) (Negative) Urine Ketones (Negative) Urine Blood (Negative) Urine Nitrite (Negative) Urine Bilirubin (Negative) Urine Urobilinogen (<2.0) mg/dL Ur Leukocyte Esterase (Negative) 11/17/24 Range/Units 19:01 WBC (3.8-10.6) k/uL RBC (4.30-5.90) m/uL Hgb (13.0-17.5) gm/dL Hct (39.0-53.0) % MCV (80.0-100.0) fL MCH (25.0-35.0) pg MCHC (31.0-37.0) g/dL RDW (11.5-15.5) % Plt Count (150-450) k/uL MPV Neutrophils % % Lymphocytes % % Monocytes % % Eosinophils % % Basophils % % Neutrophils # (1.3-7.7) k/uL Lymphocytes # (1.0-4.8) k/uL Monocytes # (0-1.0) k/uL Eosinophils # (0-0.7) k/uL Basophils # (0-0.2) k/uL Sodium (137-145) mmol/L Potassium (3.5-5.1) mmol/L Chloride (98-107) mmol/L Carbon Dioxide (22-30) mmol/L Anion Gap mmol/L BUN (9-20) mg/dL Creatinine (0.66-1.25) mg/dL Est GFR (CKD-EPI)AfAm (>60 ml/min/1.73 sqM) Est GFR (CKD-EPI)NonAf (>60 ml/min/1.73 sqM) Glucose (74-99) mg/dL Plasma Lactic Acid Martin (0.7-2.0) mmol/L Calcium (8.4-10.2) mg/dL Total Bilirubin (0.2-1.3) mg/dL AST (17-59) U/L ALT (4-49) U/L Alkaline Phosphatase (38-126) U/L Total Protein (6.3-8.2) g/dL Albumin (3.5-5.0) g/dL Amylase (30-110) U/L Lipase (23-300) U/L Urine Color Yellow Urine Appearance Clear (Clear) Urine pH 5.5 (5.0-8.0) Ur Specific [place] 1.028 (1.001-1.035) Urine Protein Trace H (Negative) Urine Glucose (UA) Negative (Negative) Urine Ketones Trace H (Negative) Urine Blood Negative (Negative) Urine Nitrite Negative (Negative) Urine Bilirubin Negative (Negative) Urine Urobilinogen <2.0 (<2.0) mg/dL Ur Leukocyte Esterase Negative (Negative) Disposition Clinical Impression: Abdominal pain Disposition: ADMITTED IP TO THIS HOSP Condition: Fair Is patient prescribed a controlled substance at d/c from ED?: No
[2024-11-18 00:45] VITALS: RESP 16
[2024-11-18] MEDS: TEMAZEPAM 15 MG CAP PO SCH (01:54)
[2024-11-18] MEDS: PANTOPRAZOLE 40 MG/10 ML VIAL IV SCH (09:00)
--- NOTE | 2024-11-18 11:39 | P.GSCN ---
History of Present Illness Consult date: 11/18/24 History of present illness: CHIEF COMPLAINT: Abdominal pain HISTORY OF PRESENT ILLNESS: This is a 79-year-old male who presented to the hospital with complaints of abdominal pain in the right lower quadrant. Patient reports 3 days ago he had diarrhea through the night and the following morning he had right lower quadrant abdominal pain. The diarrhea has resolved. He does continue to have right lower quadrant pain. He reports this pain is similar to a prior bowel infection he has had in the past. He denies any nausea or vomiting. Denies any fevers chills or sweats. Denies any prior abdominal surgery. Last colonoscopy was in February 2023 that had reported scattered diffuse diverticulosis throughout the colon and rectal polyp. Patient denies any prior history of hernias. PAST MEDICAL HISTORY: See list. PAST SURGICAL HISTORY: See list. MEDICATIONS: See list. ALLERGIES: See list. SOCIAL HISTORY: No illicit drug use. REVIEW OF SYSTEMS: CONSTITUTIONAL: Denies fever or chills. HEENT: Denies blurred vision, vision changes, or eye pain. Denies hemoptysis ENDOCRINE: Denies heat or cold intolerance. CARDIOVASCULAR: Denies chest pain or pressure. RESPIRATORY: No shortness of breath. GASTROINTESTINAL: Please refer to HPI otherwise unremarkable. NEURO: Denies history of seizures. PSYCH: No depression or suicidal ideation HEMATOLOGIC: Denies bleeding disorders. LYMPHATIC: The patient denies any lumps and bumps around the neck. GENITOURINARY: Denies any blood in urine or increased urinary frequency. MUSCULOSKELETAL: Denies myalgias. Denies joint swelling. Denies decreased range of motion beyond patients baseline. SKIN: Denies pruitis. Denies rash. PHYSICAL EXAM: VITAL SIGNS: Reviewed GENERAL: Well-developed in no acute distress. HEENT: No sclera icterus. Extraocular movements grossly intact. Moist buccal mucosa. Head is atraumatic, normocephalic. Hears conversational speech. No nasal drainage. NECK: Supple without lymphadenopathy. CHEST: Non-labored respirations and equal bilateral excursions. CARDIOVASCULAR: Palpable 2+ radial pulses. ABDOMEN: Soft. Nondistended. Tenderness with palpation right lower quadrant. No rebound or guarding noted. No evidence of right inguinal hernia or umbilical hernia at this time. MUSCULOSKELETAL: No clubbing or cyanosis. NEUROLOGIC: No focal or lateralizing signs. Cranial nerves II through XII grossly intact. PSYCH: Appropriate affect. Alert and oriented to person, place and time. SKIN: Well perfused. Good skin turgor. LABORATORY DATA: WBC is 8.7 Hgb 18.5 platelets 180 Sodium is 138 potassium 4.4 creatinine 1.23 Lactic acid 1.6 IMAGING: CT scan abdomen pelvis reports circumferential wall thickening of loops of small bowel in the mid abdomen compatible with enteritis. A loop of small bowel with thickened quick does enter partially into the right inguinal canal. No evidence for bowel obstruction. Infrarenal abdominal aortic aneurysms. Moderate to se felicia valve calcifications. Fat-containing umbilical hernia. ASSESSMENT: 1. Right lower quadrant abdominal pain likely due to diverticulitis. Patient with prior colonoscopy in February 2023 showing a pandiverticulosis. 2. History of coronary artery disease with cardiac stents 3. Infrarenal abdominal aortic aneurysm PLAN: -Add Zosyn for diverticulitis -Advance diet to regular -No surgical intervention planned -Continue to monitor Physician Wildlife Biologist note has been reviewed by physician. Signing provider agrees with the documented findings, assessment, and plan of care. Please additional documentation below CHIEF COMPLAINT: Right lower quadrant abdominal pain HISTORY OF PRESENT ILLNESS: The patient is a 79 year old male who presents following right lower quadrant abdominal pain that started a day ago. Patient does report having similar episodes in the past which was treated for diverticulitis. Last colonoscopy was February 2023 with findings of scattered diverticulosis. Patient reports since admission he is feeling better. He is passing flatus. He denies any known history of hernias. He denies any swelling of the bilateral groin or umbilicus. General surgery is consulted due to ileus. PAST MEDICAL HISTORY: See list and reviewed PAST SURGICAL HISTORY: See list and reviewed MEDICATIONS: See list and reviewed ALLERGIES: See list and reviewed SOCIAL HISTORY: See list and reviewed FAMILY HISTORY: See list and reviewed REVIEW OF ORGAN SYSTEMS: CONSTITUTIONAL: No fevers or chills. No recent weight loss. EYES: Denies any trouble with vision. No glasses. HEENT: No difficulties with hearing. No nosebleeds. No difficulty swallowing. RESPIRATORY: Denies pneumonia. Denies any troubles with breathing or dyspnea on exertion. CARDIOVASCULAR: Hypertensive heart disease. Hyperlipidemia. Coronary artery disease. Has peripheral vascular occlusive disease. Has carotid artery stenosis. GASTROINTESTINAL: Denies fatty food intolerance. Denies change in bowel habits and gas bloat. GENITOURINARY: As prostate disorder. NEUROLOGICAL: Denies any numbness or tingling along the distal extremities. No seizure disorders or headaches. MUSCULOSKELETAL: Denies any back pain, stiffness or joint arthritis. SKIN: No current skin cancer. No rash. PSYCHIATRIC: Denies current depression or suicidal thoughts. ENDOCRINE: Denies current thyroid disorders. Denies any blood sugar glucose intolerance. HEME/LYMPHATIC: Denies any lumps and bumps around the neck. No recent deep venous thrombosis. ALLERGY/IMMUNOLOGY: No immunoglobulin therapy. No immune deficiencies. BREAST: Denies current breast lumps, pain or nipple discharge. PHYSICAL EXAM: VITALS: Reviewed CONSTITUTIONAL: Well developed and in no acute distress. EYES: Conjuctivae without sclera icterus. Extraocular movements grossly intact. HEAD, EARS, NOSE, THROAT: Moist buccal mucosa. Head is atraumatic, normocephalic. Hears conversational speech. No nasal drainage. NECK: Supple. No JV distention. No thyroidomegaly. RESPIRATORY: Non-labored respirations and equal bilateral excursions. No gross wheezes. CARDIOVASCULAR: Palpable 2+ radial pulses. ABDOMEN: No peritonitis. Minimal tenderness right lower quadrant. No swelling or groin hernias. LYMPH: No neck lymphadenopathy. MUSCULOSKELETAL: No clubbing cyanosis or edema SKIN: Warm and well perfused with good skin turgor. NEUROLOGIC: Cranial nerves II through XII grossly intact. No focal or lateralizing signs. PSYCH: Appropriate affect. Alert and oriented to person, place and time. Displays appropriate insight. CLINCAL LABS: Reviewed. WBC normal. Hemoglobin elevated 18.5. Potassium elevated 5.4. Total bilirubin elevated 1.8. Calcium elevated 10.4. IMAGING: Independently reviewed. CT of the abdomen pelvis reviewed demonstrates moderate sigmoid diverticulosis with pandiverticulosis. Mild inflammation of the right lower quadrant bowel. Fat-containing bilateral inguinal hernias. Gallbladder present. Abdominal aortic aneurysm. No significant umbilical hernia. Appendix within normal limits. Bowel containing right inguinal hernia without obstruction. RADIOLOGY: Report reviewed. CT and pelvis report of umbilical hernia. Noted diverticulosis. Noted for ileus. RECORDS: previous old records reviewed. Colonoscopy from February 2023 demonstrates moderate scattered diverticulosis. Presence of rectal polyp. Pathology report reviewed demonstrate hyperplastic polyp. ASSESSMENT: 1. Abdominal pain, right lower quadrant 2. Pandiverticulosis 3. Bilateral inguinal hernia, asymptomatic 4. History of diverticulitis 5. Coronary artery disease 6. Peripheral vascular occlusive disease PLAN: 1. IV fluid hydration. 2. Recommend antibiotic for presumptive diverticulitis and inflammation 3. No acute surgical invention for asymptomatic bilateral inguinal hernias 4. Diet as tolerated 5. May follow-up as outpatient as needed ADVANCE DIRECTIVE: CODE STATUS in chart Thank you for this kind consultation. Past Medical History Past Medical History: Coronary Artery Disease (CAD), Hyperlipidemia, Hypertension, Prostate Disorder, Skin Disorder, Vascular Disorder Additional Past Medical History / Comment(s): migraines, PVD, back is itchy, History of Any Multi-Drug Resistant Organisms: None Reported Past Surgical History: Orthopedic Surgery Additional Past Surgical History / Comment(s): PTBA W/ 2 STENTS ON ONE SIDE, 1 STENT ON OTHER SIDE. rt shoulder rotator cuff. RT CAROTID ENDARTERECTOMY Past Anesthesia/Blood Transfusion Reactions: No Reported Reaction Date of Last Stent Placement:: UNK Past Psychological History: No Psychological Hx Reported Smoking Status: Former smoker Past Alcohol Use History: None Reported Additional Past Alcohol Use History / Comment(s): SMOKED 40 YEARS, <1PPD, QUIT 2001 Past Drug Use History: None Reported - Past Family History Father Family Medical History: Cancer Daughter(s) Family Medical History: Cancer Medications and Allergies Home Medications Medication Instructions Recorded Confirmed Type Atorvastatin [Lipitor] 20 mg PO DAILY 05/29/17 11/18/24 History Atorvastatin [Lipitor] 40 mg PO DAILY 05/29/17 11/18/24 History Temazepam [Restoril] 15 mg PO HS PRN 05/29/17 11/18/24 History lisinopriL [Prinivil] 10 mg PO DAILY 05/29/17 11/18/24 History traMADol HCL 50 mg PO Q6H 3 Days #12 tab 11/18/24 Rx Allergies Allergy/AdvReac Type Severity Reaction Status Date / Time heparin Allergy headache Verified 11/18/24 09:25 Surgical - Exam Vital Signs Temp Pulse Resp BP Pulse Ox 97.3 F L 79 18 129/78 97 11/17/24 17:31 11/17/24 17:31 11/17/24 17:31 11/17/24 17:31 11/17/24 17:31 Results - Labs 11/17/24 19:00 11/17/24 19:00 Abnormal Lab Results - Last 24 Hours (Table) 11/17/24 11/17/24 11/17/24 Range/Units 19:00 19:00 19:01 RBC 5.95 H (4.30-5.90) m/uL Hgb 18.5 H (13.0-17.5) gm/dL Hct 54.7 H (39.0-53.0) % Potassium 5.4 H (3.5-5.1) mmol/L BUN 22 H (9-20) mg/dL Calcium 10.4 H (8.4-10.2) mg/dL Total Bilirubin 1.8 H (0.2-1.3) mg/dL Urine Protein Trace H (Negative) Urine Ketones Trace H (Negative) Diabetes panel 11/17/24 Range/Units 19:00 Sodium 138 (137-145) mmol/L Potassium 5.4 H (3.5-5.1) mmol/L Chloride 101 (98-107) mmol/L Carbon Dioxide 26 (22-30) mmol/L BUN 22 H (9-20) mg/dL Creatinine 1.23 (0.66-1.25) mg/dL Glucose 86 (74-99) mg/dL Calcium 10.4 H (8.4-10.2) mg/dL AST 42 (17-59) U/L ALT 23 (4-49) U/L Alkaline Phosphatase 81 (38-126) U/L Total Protein 8.2 (6.3-8.2) g/dL Albumin 4.7 (3.5-5.0) g/dL Calcium panel 11/17/24 Range/Units 19:00 Calcium 10.4 H (8.4-10.2) mg/dL Albumin 4.7 (3.5-5.0) g/dL Pituitary panel 11/17/24 Range/Units 19:00 Sodium 138 (137-145) mmol/L Potassium 5.4 H (3.5-5.1) mmol/L Chloride 101 (98-107) mmol/L Carbon Dioxide 26 (22-30) mmol/L BUN 22 H (9-20) mg/dL Creatinine 1.23 (0.66-1.25) mg/dL Glucose 86 (74-99) mg/dL Calcium 10.4 H (8.4-10.2) mg/dL Adrenal panel 11/17/24 Range/Units 19:00 Sodium 138 (137-145) mmol/L Potassium 5.4 H (3.5-5.1) mmol/L Chloride 101 (98-107) mmol/L Carbon Dioxide 26 (22-30) mmol/L BUN 22 H (9-20) mg/dL Creatinine 1.23 (0.66-1.25) mg/dL Glucose 86 (74-99) mg/dL Calcium 10.4 H (8.4-10.2) mg/dL Total Bilirubin 1.8 H (0.2-1.3) mg/dL AST 42 (17-59) U/L ALT 23 (4-49) U/L Alkaline Phosphatase 81 (38-126) U/L Total Protein 8.2 (6.3-8.2) g/dL Albumin 4.7 (3.5-5.0) g/dL
[2024-11-18 11:52] VITALS: BP 122/72; PULSE 72; TEMP 97.8
[2024-11-18] MEDS: PIPERACILLIN-TAZOBACTAM 3.375 GM in SODIUM CHLORIDE 0.9% 100 ML IVPB SCH (12:19)
--- NOTE | 2024-11-18 12:53 | P.HPIM ---
History of Present Illness H&P Date: 11/18/24 Chief Complaint: Abdominal pain Patient is a 79-year-old male with coronary artery disease, hyperlipidemia, hypertension, peripheral vascular disease presented with right-sided flank and right lower quadrant abdominal pain that started early Thursday. Patient reports the pain to be an aching sometimes stabbing sensation. Denies any alleviating or exacerbating factors. Patient reports having diarrhea for the past 2 days. Patient denies any fever, chills, shortness of breath, chest pain, nausea, vomiting, dysuria, lower extremity swelling, pain going into the scrotu m's or testicles. ED documentation reviewed. In the ED patient was treated with normal saline at 130 cc an hour and temazepam 50 mg p.o. x 1 Vitals on admission temperature 98.3, pulse rate 89, respiratory rate 16, blood pressure 105/67, O2 sat 95% on room air CT of abdomen pelvis shows circumferential wall thickening of loops of small bowel in the mid abdomen compatible with enteritis. A loop of small bowel with thickened quick the center partially into the right inguinal canal. No evidence of bowel obstruction. Infrarenal abdominal aortic aneurysms, largest measuring 46 x 42 mm on axial slices, vascular surgical consultation recommended. Moderate to severe valve calcifications. Fat-containing umbilical hernia. Labs on admission show WBC 8.7, hemoglobin 18.5, hematocrit 54.7, platelets 180, sodium 138, potassium 5.4, chloride 101, carbon dioxide 26, BUN 22, creatinine 1.23, lactic acid 1.6, calcium 10.4, total bili 1.8, AST 42, ALT 23, alkaline phosphatase 81, lipase 100 UA shows trace protein and trace ketones, negative for nitrate and leukocyte esterase Review of systems: Pertinent positives and negatives as discussed in HPI, a complete review of systems was performed and all other systems are negative. PMH: Coronary artery disease, hyperlipidemia, hypertension, peripheral vascular disease PSH: Percutaneous transluminal balloon angioplasty with 2 stents on 1 side, with stent on the other side. History of right carotid endarterectomy. FMH: Father has a history of cancer Allergies: Heparin Social history: Tobacco: Former smoker Alcohol: No alcohol use Recreational drugs: No drug use Travel: No travel history Sick contacts: No sick contacts Physical examination: Vital signs reviewed General: nontoxic, no distress, appears at stated age Derm: warm, dry, intact Head: atraumatic, normocephalic, symmetric Eyes: EOMI, anicteric sclera Mouth: no lip lesion, mucus membranes moist Cardiovascular: S1 S2 reg, no murmur Lungs: CTA bilateral, no rhonchi, no rales, no accessory muscle use Abdominal: Tender to palpation in the right lower quadrant, soft, no rebound tenderness Extremities: No cyanosis, clubbing, or pedal edema. Neuro: Alert, Oriented, Gross neurological examination did not reveal any focal deficits. Psych: well appearing, appropriate affect Assessment/Plan: 79-year-old male with coronary artery disease, hyperlipidemia, hypertension, peripheral vascular disease status post percutaneous transluminal balloon angioplasty with 2 stents on 1 side and a stent on the other side presented with right sided flank and right lower quadrant abdominal pain that started early Thursday. Patient will be admitted to internal medicine service. Active: #. Right inguinal hernia #. Infrarenal abdominal aortic aneurysm largest measuring 46 x 42 mm General Surgery consulted, right lower quadrant pain likely due to diverticulitis. General surgery recommended no surgical intervention at this time Continue with [facility] Discussed with vascular surgery and they recommend patient to follow-up and evaluate the infrarenal abdominal aortic aneurysm as outpatient #. Hyperkalemia Potassium 5.4 Monitor morning BMP #. Hypercalcemia Calcium 10.4 Monitor morning BMP Chronic: #. Hypertension #. Hyperlipidemia Restart home meds once reconciled with pharmacy F: No restrictions E: Replete as needed N: NPO diet A: Ambulatory DVT prophylaxis: Lovenox 40 mg subcu daily The patient is admitted with an anticipated more than 2 midnight stay for evaluation of right inguinal hernia CODE STATUS: Full code Discussed with: Patient Anticipated discharge place: Home Past Medical History Past Medical History: Coronary Artery Disease (CAD), Hyperlipidemia, Hypertension, Prostate Disorder, Skin Disorder, Vascular Disorder Additional Past Medical History / Comment(s): migraines, PVD, back is itchy, History of Any Multi-Drug Resistant Organisms: None Reported Past Surgical History: Orthopedic Surgery Additional Past Surgical History / Comment(s): PTBA W/ 2 STENTS ON ONE SIDE, 1 STENT ON OTHER SIDE. rt shoulder rotator cuff. RT CAROTID ENDARTERECTOMY Past Anesthesia/Blood Transfusion Reactions: No Reported Reaction Date of Last Stent Placement:: UNK Past Psychological History: No Psychological Hx Reported Smoking Status: Former smoker Past Alcohol Use History: None Reported Additional Past Alcohol Use History / Comment(s): SMOKED 40 YEARS, <1PPD, QUIT 2001 Past Drug Use History: None Reported - Past Family History Father Family Medical History: Cancer Daughter(s) Family Medical History: Cancer Medications and Allergies Home Medications Medication Instructions Recorded Confirmed Type Atorvastatin [Lipitor] 20 mg PO DAILY 05/29/17 11/18/24 History Atorvastatin [Lipitor] 40 mg PO DAILY 05/29/17 11/18/24 History Temazepam [Restoril] 15 mg PO HS PRN 05/29/17 11/18/24 History lisinopriL [Prinivil] 10 mg PO DAILY 05/29/17 11/18/24 History Allergies Allergy/AdvReac Type Severity Reaction Status Date / Time heparin Allergy headache Verified 11/18/24 09:25 Physical Exam Vitals: Vital Signs Temp Pulse Pulse Resp BP BP Pulse Ox 11/18/24 07:11 98.3 F 89 16 105/67 95 11/18/24 00:44 97.5 F L 69 16 133/78 97 11/17/24 23:54 97.8 F 71 18 141/66 97 11/17/24 22:16 97.6 F 84 18 129/73 97 11/17/24 17:31 97.3 F L 79 18 129/78 97 Intake and Output 11/17/24 11/18/24 11/18/24 22:59 06:59 14:59 Other: Voiding Method Toilet Urinal # Voids 3 Weight 70.76 kg 70.76 kg Results CBC & Chem 7: 11/17/24 19:00 11/17/24 19:00 Labs: Abnormal Lab Results - Last 24 Hours (Table) 11/17/24 11/17/24 11/17/24 Range/Units 19:00 19:00 19:01 RBC 5.95 H (4.30-5.90) m/uL Hgb 18.5 H (13.0-17.5) gm/dL Hct 54.7 H (39.0-53.0) % Potassium 5.4 H (3.5-5.1) mmol/L BUN 22 H (9-20) mg/dL Calcium 10.4 H (8.4-10.2) mg/dL Total Bilirubin 1.8 H (0.2-1.3) mg/dL Urine Protein Trace H (Negative) Urine Ketones Trace H (Negative) Thrombosis Risk Factor Assmnt - Choose All That Apply Any of the Below Risk Factors Present?: No Other Risk Factors: Yes Each Risk Factor Represents 3 Points: Age 75 years or older Thrombosis Risk Factor Assessment Total Risk Factor Score: 3 Thrombosis Risk Factor Assessment Level: Moderate Risk
--- NOTE | 2024-11-18 14:15 | P.DS ---
Providers Date of admission: 11/17/24 22:29 Expected date of discharge: 11/18/24 Attending physician: Roland Nelson Consults: 11/17/24 22:26 Consult Physician Routine Consulting Provider: Elke Valverde Consult Reason/Comments: abdominal pain. Right inguinal hernia Do you want consulting provider notified?: Yes Primary care physician: Carol Orta Hospital Course: Hospital course: 79-year-old male with coronary artery disease, hyperlipidemia, hypertension, peripheral vascular disease presented with right-sided flank and right lower quadrant abdominal pain that started early Thursday. Patient reports the pain to be an aching sometimes stabbing sensation. Denies any alleviating or exacerbating factors. Patient reports having diarrhea for the past 2 days. Denies any fever, chills, shortness of breath, chest pain, nausea, vomiting, dysuria, lower extremity swelling, pain going into the scrotum or testicles. Initial workup in the ED included CT of abdomen and pelvis which showed circumferential wall thickening of loops of small bowel in the mid abdomen compatible with enteritis. A loop of small bowel with thickened quick at the center partially into the right inguinal canal. No evidence of bowel obstruction. Infrarenal abdominal aortic aneurysms, largest measuring 46 x 42 mm on axial slices, vascular surgical consultation recommended. Moderate to se felicia valve calcifications. Fat-containing umbilical hernia. Because of the CT finding, general surgery was consulted. General surgery recommended no surgical intervention at this time. The infrarenal abdominal aortic aneurysm was discussed with vascular surgery team and they recommend to follow-up as outpatient. Patient was seen this morning at bedside. He reported improving abdominal pain. He is currently stable to be discharged back home. Tramadol 50 mg every 6 hours for 3 days has been prescribed. Patient is encouraged to follow-up with vascular surgery in 1 week and his primary care physician in 1 to 2 days after discharge. Physical examination at discharge: GENERAL: This is a 79-year-old in no apparent distress at the time of examination. Pleasant and cooperative. HEENT: Head is atraumatic, normocephalic. Pupils are equal, round, and reactive to light. Sclerae anicteric. Conjunctivae are clear. Mucus membranes of the mouth are moist. Neck is supple. RESPIRATORY: Clear to auscultation. No wheezes, rales, or rhonchi. No use of accessory muscles. Patient maintaining oxygen saturation greater than 92%. No chest wall tenderness is noted on palpation or with deep breathing. CARDIOVASCULAR: Regular rate and rhythm. S1 and S2 noted. No systolic or diastolic murmur auscultated. No JVD noted. No S3 or S4 noted. GASTROINTESTINAL: No distention noted. Abdomen soft and round. Normal active bowel sounds auscultated x 4 quadrants. No pain or tenderness noted upon palpation. INTEGUMENTARY: No cyanosis. No jaundice. No rashes noted. No cellulitis noted. EXTREMITIES: 2+ peripheral pulses. No evidence of peripheral edema. No calf tenderness noted. NEUROLOGIC: Cranial nerves II-XII intact. PSYCHIATRIC: Awake, alert. Appropriate affect. Intact judgement and insight. Patient Condition at Discharge: Fair Plan - Discharge Summary Discharge Rx Participant: No New Discharge Prescriptions: New traMADol HCL 50 mg PO Q6H 3 Days #12 tab Continue lisinopriL [Prinivil] 10 mg PO DAILY Atorvastatin [Lipitor] 40 mg PO DAILY Atorvastatin [Lipitor] 20 mg PO DAILY Temazepam [Restoril] 15 mg PO HS PRN PRN Reason: Insomnia Discharge Medication List Atorvastatin [Lipitor] 20 mg PO DAILY 05/29/17 [History] Atorvastatin [Lipitor] 40 mg PO DAILY 05/29/17 [History] Temazepam [Restoril] 15 mg PO HS PRN 05/29/17 [History] lisinopriL [Prinivil] 10 mg PO DAILY 05/29/17 [History] traMADol HCL 50 mg PO Q6H 3 Days #12 tab 11/18/24 [Rx] Follow up Appointment(s)/Referral(s): Elsa Angel DO [STAFF PHYSICIAN] - 1 Week Carol Orta DO [Primary Care Provider] - 1 Week (The office was not available to make an apointment.) Discharge Disposition: HOME SELF-CARE
== END 2024-11-18 14:20 | disposition home or self-care (01) ==
LOC: EC 17:07 → 5NMEDONC 22:29
PROVIDERS: ADMIT Hospitalist; ATTEND Hospitalist
DX: K56.7 Ileus, unspecified (principal); K57.30 Diverticulosis of large intestine without perforation or abscess without bleeding; E87.5 Hyperkalemia; E83.52 Hypercalcemia; I71.43 Infrarenal abdominal aortic aneurysm, without rupture; K40.20 Bilateral inguinal hernia, without obstruction or gangrene, not specified as recurrent; K42.9 Umbilical hernia without obstruction or gangrene; I08.0 Rheumatic disorders of both mitral and aortic valves; I11.9 Hypertensive heart disease without heart failure; K62.1 Rectal polyp; I25.10 Atherosclerotic heart disease of native coronary artery without angina pectoris; I73.9 Peripheral vascular disease, unspecified; E78.5 Hyperlipidemia, unspecified; Z79.82 Long term (current) use of aspirin; Z79.899 Other long term (current) drug therapy; Z88.8 Allergy status to other drugs, medicaments and biological substances; Z87.891 Personal history of nicotine dependence; Z95.5 Presence of coronary angioplasty implant and graft
CPT/HCPCS: 96361; 96374; 99285; 36415; 80053; 82150; 83605; 83690; 85025; 81003; 74176; G0378 ×2; J2543; J2470